=== PATIENT | female | born 1990 | race Caucasian/White ===

== ENCOUNTER 2019-03-12 23:47 | Emergency (ER) | payer BC ==
[~2019-03-12] VITALS: Ht 160 cm; Wt 59.0 kg
[2019-03-12 23:50] VITALS: BP 138/86
== END 2019-03-13 02:40 | disposition home or self-care (01) ==
LOC: ER 23:47
DX: F41.0 Panic disorder [episodic paroxysmal anxiety] (principal)
CPT/HCPCS: 99283